=== PATIENT | male | born 1985 | race Two or more races ===

== ENCOUNTER 2024-09-06 09:15 | Emergency (ER) | payer MEDICAID, SELFPAY ==
[2024-09-06 09:17] VITALS: BMI 37.1
[2024-09-06 09:35] VITALS: BP 138/89; PULSE 105; RESP 18; TEMP 37.9; O2SAT 98
--- NOTE | 2024-09-06 09:50 | XR_ITS ---
Examination: CT abdomen and pelvis without contrast. Coronal 3-D reconstructions. Sagittal 2-D reconstructions. Date and time of exam:September 06, 2024, 1012 hrs. Comparison August 31, 2020 Indications: Onset left lower abdominal pain beginning yesterday CTDI: vol (mGy): 17.1 DLP: (mGycm): 1030 Technique: Axial images of the abdomen have been obtained, 3 mm slice thickness Intravenous contrast material has not been administered. Low dose protocols were performed. One or more of the following dose reduction techniques were used; automated exposure control, adjustment of the mA and/or KV according to patient size, use of iterative reconstruction technique. Findings: Diffuse fatty infiltration throughout the liver, no liver or splenic lesions Absent gallbladder No pancreatic mass or peripancreatic edema. Normal adrenal glands. No renal or ureteral calculi. No hydronephrosis Aorta normal size Normal appendix. No bowel obstruction. Colonic wall appears diffusely mildly thickened No diverticulitis. Urinary bladder intact. No significant prostatomegaly Grade 1 spondylolisthesis L4 on L5 Impression: Mild diffuse nonspecific colitis pattern
[2024-09-06 10:14] LABS: Collection Type, Urine Clean Catch
[2024-09-06 10:28] LABS: Bacteria,Urine Rare; Bilirubin,Urine Negative (Negative); Blood,Urine Negative (Negative); Clarity,Urine Turbid (Clear/Hazy); Color,Urine Yellow (Lt Yel-Yel); Glucose, Urine Negative (Negative); Ketones,Urine Negative (Negative); Leukocyte Esterase,Urine Positive (Negative); Nitrite,Urine Negative (Negative); PH,Urine 6.5 (5.0-7.0); Protein,Urine 1+ (Neg - Trace); RBC,Urine 3 /hpf (0-3); Specific Gravity,Urine 1.031 (1.001-1.035); Squamous Epithelial Cell,Urine 3 /hpf (0-5); WBC,Urine 27 /hpf (0-5)
--- NOTE | 2024-09-06 10:30 | EDNOTE_ITS ---
ED Abdominal Pain RME/HPI General Chief Complaint: Abdominal Pain Stated complaint: LLQ PAIN X1D Time seen by provider: 09/06/24 09:29 Arrival date/time: 09/06/24 09:15 This is a case of 39-year-old male history of status postcholecystectomy came in in the emergency room due to left-sided abdominal pain associated with nausea vomiting and diarrhea denies any constipation for 1 day due to worsening of the symptoms this patient decided to start consult here in the emergency room Limitations: no limitations Related Data Previous Rx's ?Medication ?Instructions ?Recorded cyclobenzaprine 7.5 mg tablet 7.5 mg PO TID PRN muscle spasm #20 03/09/20 tabs methylprednisolone 4 mg tablets in 4 mg PO .as directe d #21 tabs 03/09/20 a dose pack (Medrol (Efren)) naproxen 500 mg tablet 500 mg PO BID PRN pain #30 t abs 03/09/20 naproxen 500 mg tablet (Naprosyn) 500 mg PO BID #30 ta bs 04/20/20 ondansetron HCl 4 mg tablet 4 mg PO Q6H PRN nausea and 04/20/20 (Zofran) vomiting #30 tabs etodolac 400 mg tablet 400 mg PO BID PRN pain #30 t abs 08/08/20 methocarbamol 750 mg tablet 750 mg PO TID PRN pain #30 tabs 08/08/20 acetaminophen 500 mg tablet 1,000 mg (2 x 500 mg) PO Q ID PRN 01/15/21 fever or pain #30 tabs albuterol sulfate 90 mcg/actuation 2 puff inhalation Q ID #8.5 grams 01/15/21 aerosol inhaler azithromycin 250 mg tablet See Rx Instructions PO .COM PLEX #6 01/15/21 tabs acetaminophen 500 mg capsule 1,000 mg (2 x 500 mg) PO Q8HR PRN 04/16/21 pain #60 caps ibuprofen 800 mg tablet 800 mg PO TID PRN pain #30 t abs 04/16/21 promethazine-DM 6.25 mg-15 mg/5 mL 5 ml PO Q6H PRN cou gh #473 mL 04/16/21 oral syrup ciprofloxacin HCl 500 mg tablet 500 mg PO BID 10 days #20 tabs 09/06/24 dicyclomine 20 mg tablet 20 mg PO TID PRN abdominal p ain 09/06/24 #20 tabs metronidazole 500 mg tablet 500 mg PO Q8H 10 days #30 tabs 09/06/24 ondansetron 4 mg disintegrating 4 mg PO Q8H PRN nausea and 09/06/24 tablet vomiting #20 tabs Allergies Allergy/AdvReac Type Severity Reaction Status Date / Time No Known Allergies Allergy Verified 09/06/24 09:19 Review of Systems Review of Systems Systems Reviewed: All systems reviewed, normal except as documented Constitutional Constitutional: Reports system reviewed and no additional complaints, except as documented ENT Ears, Nose, Mouth, and Throat: Denies dysphagia and Denies odynophagia Cardiovascular Cardiovascular: Reports system reviewed and no additional complaints, except as documented and Reports as per HPI Respiratory Respiratory: Reports system reviewed and no additional complaints, except as documented and Reports as per HPI Gastrointestinal Gastrointestinal: Reports system reviewed and no additional complaints, except as documented, Reports as per HPI, Reports abdominal pain, Denies belching, Denies bloating, Denies change in bowel habits, Denies change in stool character, Denies coffee ground emesis, Denies constipation, Denies cramping, Reports diarrhea, Denies dyspepsia, Denies dysphagia, Denies early satiety, Denies excessive flatus, Denies fecal incontinence, Denies heartburn, Denies hematemesis, Denies hematochezia, Denies loose stools, Denies melena, Reports nausea, Denies odynophagia, Denies tenesmus and Reports vomiting Musculoskeletal Musculoskeletal: Reports system reviewed and no additional complaints, except as documented Neurologic Neurologic: Reports system reviewed and no additional complaints, except as documented and Reports as per HPI Past Medical History Past Medical History NEUROLOGIC: Positive Neurological Disorders (states cyst to L side of head) and Migraine CARDIAC: Negative Cardiac Disorders or Congestive Heart Failure RESPIRATORY: Negative Chronic Obstructive Pulmonary Disease (COPD) or Asthma GASTROINTESTINAL: Positive Gastrointestinal Disorders and Gall Bladder Disease GENITOURINARY: Negative Genitourinary Disorders or Renal Disease MUSCULOSKELETAL: Negative Musculoskeletal Disorders ENDOCRINE: Negative Endocrine Disorders, Diabetes Mellitus Type 1 or Diabetes Mellitus Type 2 HEMATOLOGIC: Negative Blood Disorders or Sickle Cell Disease Social History SMOKING STATUS: Never smoker ED Exam General Limitations: Present no limitations General appearance: Present alert and in no apparent distress Head Head exam: Present atraumatic Eye Eye exam: Present normal appearance, PERRL and EOMI ENT ENT exam: Present normal exam, normal oropharynx and mucous membranes moist Neck Neck exam: Present normal inspection, full ROM and trachea midline Chest Chest inspection: Present normal inspection and symmetric chest wall rise Respiratory Respiratory exam: Present normal lung sounds bilaterally; Absent respiratory distress, wheezes, stridor, accessory muscle use or prolonged expiratory phase Cardiovascular Cardiovascular exam: Present regular rate, normal rhythm and normal heart sounds; Absent systolic murmur or diastolic murmur Abdominal Exam Abdominal exam: Present soft, tenderness (Mild tenderness on the left lower quadrant) and normal bowel sounds; Absent distention, guarding, rebound, rigidity, diminished bowel sounds, hyperactive bowel sounds, hypoactive bowel sounds, organomegaly, trauma, incision, psoas sign, obturator sign, Diaz's sign, Rovsing's sign, tenderness at McBurney's Point, ascites or hernia Abdominal tenderness: Present LLQ Extremities Exam Extremities exam: Present normal inspection and full ROM Back Exam Back exam: Present normal inspection and full ROM Neurological Exam Neurological exam: Present alert, oriented X3, CN II-XII intact, normal gait and reflexes normal; Absent motor sensory deficit Psychiatric Psychiatric exam: Present normal affect and normal mood Skin Skin exam: Present warm, dry, intact and normal color Course Quality Measures none Orders Category Date Time Status CT abdomen pelvis wo con Stat Exams 09/06/24 09:50 Completed CBC Stat Lab 09/06/24 10:21 Completed Comprehensive Metabolic Panel Stat Lab 09/06/24 10:21 Completed Lactate (Lactic Acid) Stat Lab 09/06/24 12:46 Completed Lipase Stat Lab 09/06/24 10:21 Completed Urinalysis Stat Lab 09/06/24 09:52 Completed Acetaminophen Tab [Tylenol Tab] Med 09/06/24 13:23 Once 650 mg PO X1 ONE Ciprofloxacin HCl [Ciprofloxacin] Med 09/06/24 13:11 Discontinued 500 mg PO X1 ONE Dicyclomine [Bentyl] Med 09/06/24 13:11 Discontinued 20 mg PO X1 ONE Ondansetron Inj [Zofran Inj] Med 09/06/24 12:48 Discontinued 4 mg IVP X1 ONE Sodium Chloride 0.9% 1000 ml [Ns] 1,000 ml Med 09/06/24 12:48 Active IV 999 mls/hr metroNIDAZOLE [Flagyl] Med 09/06/24 13:11 Discontinued 500 mg PO X1 ONE Vital Signs Vital signs: Vital Signs Temperature 100.3 F 09/06/24 09:35 Pulse Rate 105 H 09/06/24 09:35 Respiratory Rate 18 09/06/24 09:35 Blood Pressure 138/89 H 09/06/24 09:35 Pulse Oximetry (%) 98 09/06/24 09:35 Oxygen Delivery Method Room Air 09/06/24 09:35 Patient is febrile at 100.3 after hydration patient temperature noted to be 99 not tachycardic not tachypneic BP normal oxygen saturation is 98% on room Abdominal Pain MDM MDM Narrative MDM Narrative:: This is a case of 39-year-old male history of status postcholecystectomy came in in the emergency room due to left-sided abdominal pain associated with nausea vomiting and diarrhea denies any constipation for 1 day due to worsening of the symptoms this patient decided to start consult here in the emergency room physical examination patient is awake alert oriented not in distress nontoxic looking patient is slightly febrile but after giving hydration patient temperature noted to be 99 not tachycardic not tachypneic not hypoxic abdominal exam is benign nonsurgical no guarding no rebound no rigidity patient have mild tenderness on the left lower quadrant negative psoas negative obturator negative Rovsing's negative McBurney's negative Diza sign negative CVA tenderness patient blood test showed leukocytosis at 17.7 I ordered lactic acid and it was normal no anemia kidney and liver function is normal no electrolyte imbalance urinalysis showed positive WBC suggestive of urinary tract infection CT scan showed colitis patient was given a bolus of normal saline Zofran for vomiting Bentyl for pain and started on metronidazole and ciprofloxacin for colitis at this point patient will be discharged home with stable condition I do not think patient have signs and symptoms of sepsis dehydration patient will follow-up with PCP in 2 days for reevaluation and to be referred to academic program specialist for colitis and fatty liver at this point patient will be discharged home and understand very well the discharge instruction Patient was discharged with comfortable condition walking with stable gait. Patient verbalized no further complains explained diagnosis and answered patient question. Patient is comfortable with the proposed management plan including the need to follow up with his/her primary care physician and any specialist if applicable Discussed patient for any urgent condition or worsening sx, He/She needed to go to emergency room immediately or call 911. Patient acknowledge the responsibility to follow up as instructed and to monitor her/his symptoms. For any persistence of the symptoms for more than 3-5 days return precaution advised. Discussed the result of the test and was given printed discharge instruction Patient data External records reviewed:: [facility] previous records Clinical information provided by:: none Social determinants that could affect healthcare access:: none Patient has the following chronic illnesses:: none How is presenting disease/condition affected by chronic disease/condition?: no chronic disease Evaluation data The following diagnostics were reviewed and interpreted by me:: lab results, radiology exam(s) and other (specify) Lab and/or radiology exams considered but not ordered:: Reviewed Interpretation Summary: Reviewed Medications / Prescriptions Medications or Prescriptions considered but not ordered:: Given Medication administrations:: Medication Administration History Sodium Chloride (Ns) 1,000 mls @ 999 mls/hr IV .Q1H1M ONE Stop: 09/06/24 13:48 Last Admin: 09/06/24 13:08 Dose: 999 mls/hr Documented By: MF Discontinued Medications Ciprofloxacin (Ciprofloxacin Hcl 250 Mg Tablet) 500 mg PO X1 ONE Stop: 09/06/24 13:12 Dicyclomine HCl (Dicyclomine 10 Mg Capsule) 20 mg PO X1 ONE Stop: 09/06/24 13:12 Metronidazole (Metronidazole 250 Mg Tablet) 500 mg PO X1 ONE Stop: 09/06/24 13:12 Ondansetron HCl (Ondansetron Inj 2 Mg/Ml Inj 2 Ml) 4 mg IVP X1 ONE; Protocol Stop: 09/06/24 12:49 Given Consultations Consultation(s) initiated? (list below): No Diagnosis Differential diagnosis abdominal pain: abdominal pain, acute appendicitis, calculus of kidney, diverticulitis and gastroenteritis Most likely diagnosis given after review of the tests above:: Colitis Admission Indicated Admission indicated?: not indicated Explain why admission is indicated or not indicated:: Not indicate Admission Request Was there a request for admission?: No Disposition Plan Disposition Plan: Discharge Discharge Attestation Discharge Attestation: The patient and all family members were given an opportunity to ask questions and understood the discharge instructions. Discharge instructions specifically effects, indications for sooner follow up or return to the emergency department, and the expected course of current diagnosis. Patient condition: Stable Discharge Plan Plan Patient Disposition: HOME (Self Care) Patient condition on transfer: Stable Prescriptions/Referrals Prescriptions/Med Rec: New metronidazole 500 mg tablet 500 mg PO Q8H 10 Days Qty: 30 0RF ciprofloxacin HCl 500 mg tablet 500 mg PO BID 10 Days Qty: 20 0RF ondansetron 4 mg tablet,disintegrating 4 mg PO Q8H PRN (Reason: nausea and vomiting) Qty: 20 0RF dicyclomine 20 mg tablet 20 mg PO TID PRN (Reason: abdominal pain) Qty: 20 0RF No Action cyclobenzaprine 7.5 mg tablet 7.5 mg PO TID PRN (Reason: muscle spasm) Qty: 20 0RF naproxen 500 mg tablet 500 mg PO BID PRN (Reason: pain) Qty: 30 0RF methylprednisolone [Medrol (Efren)] 4 mg tablets,dose pack 4 mg PO .as directed Qty: 21 0RF naproxen [Naprosyn] 500 mg tablet 500 mg PO BID Qty: 30 0RF ondansetron HCl [Zofran] 4 mg tablet 4 mg PO Q6H PRN (Reason: nausea and vomiting) Qty: 30 0RF methocarbamol 750 mg tablet 750 mg PO TID PRN (Reason: pain) Qty: 30 0RF etodolac 400 mg tablet 400 mg PO BID PRN (Reason: pain) Qty: 30 0RF promethazine-DM 6.25-15 mg/5 mL syrup 5 ml PO Q6H PRN (Reason: cough) Qty: 473 0RF ibuprofen 800 mg tablet 800 mg PO TID PRN (Reason: pain) Qty: 30 0RF acetaminophen 500 mg capsule 1,000 mg PO Q8HR PRN (Reason: pain) Qty: 60 0RF azithromycin 250 mg tablet See Rx Instructions .ROUTE .COMPLEX Qty: 6 0RF Rx Instructions: take 500 mg today (day 1), then 250 mg for 4 days (days 2-5) acetaminophen 500 mg tablet 1,000 mg PO QID PRN (Reason: fever or pain) Qty: 30 0RF albuterol sulfate 90 mcg/actuation HFA aerosol inhaler 2 puff inhalation QID Qty: 8.5 0RF Referrals: Tom Willson MD [Primary Care Provider] - In 1 week Problem List Clinical Impression: Abdominal pain, Vomiting, Diarrhea, Colitis, Fatty liver, Leukocytosis, Urinary tract infection Patient/Caregiver Discharge Instructions Education Materials: Abdominal Pain, Nonalcoholic Fatty Liver ..., Understanding Urinary Tract ..., Understanding Colitis, ED Vomiting and Diarrhea ... Additional Instructions: Follow-up with your primary care physician in 2 days for reevaluation and to be referred to academic program specialist for further evaluation and treatment of colitis and fatty liver increase water intake keep hydrated Pedialyte Gatorade for every bouts of vomiting and or diarrhea return to the emergency room tomorrow for reevaluation of your leukocytosis and to repeat the blood test tomorrow worsening symptoms or any emergent concern return to the emergency room immediately or call 911 take your medication and finish the course of antibiotic Print Language: Polish Stand Alone Forms: [employer] Award Info., Patient Portal Info Letter PA/SOFTWARE INTEGRATION DEVELOPER Supervising Physician PA/JINA Supervising Physician: dr [email or web address]
[2024-09-06 11:05] LABS: Basophils # (Auto) 0.1 Thou/mm3 (0.0-0.2); Basophils % (Auto) 0 % (0-2.5); Eosinophils % (Auto) 0 % (0-10); Hematocrit 45.3 % (41.0-53.0); Hemoglobin 15.5 g/dL (13.5-16.0); Immature Granulocytes % (Auto) 1 % (0-0); Immature Granulocytes Auto 0.09 Thou/mm3 (0.00-0.00); Lymphocytes # (Auto) 1.5 Thou/mm3 (1.0-4.8); Lymphocytes % (Auto) 9 % (10-50); Mean Corpuscular HGB Conc 34.2 g/dl (31.0-37.0); Mean Corpuscular Hemoglobin 29.9 pg (25.0-35.0); Mean Corpuscular Volume 88 fL (80-100); Monocytes # (Auto) 0.9 Thou/mm3 (0.0-0.8); Monocytes % (Auto) 5 % (0-12); Neutrophils # (Auto) 15.1 Thou/mm3 (1.8-7.7); Neutrophils % (Auto) 85 % (37-80); Nucleated Red Blood Cell % 0 /100 WBC (0); Platelet Count 234 Thou/mm3 (140-440); RDW Standard Deviation 39.5 fL (35.1-43.9); Red Blood Count 5.18 Miln/mm3 (4.50-5.90); White Blood Count 17.7 Thou/mm3 (3.8-10.6)
[2024-09-06 11:16] LABS: Alanine Aminotransferase 36 U/L (10-49); Albumin, Serum 4.5 gm/dL (3.5-5.0); Albumin/Globulin Ratio 1.6 (1.2-2.2); Alkaline Phosphatase 63 U/L (46-116); Anion Gap 11 (7-16); BUN/Creatinine Ratio 10 Ratio (12-20); Bilirubin,Total 1.2 mg/dL (0.3-1.2); Blood Urea Nitrogen 8 mg/dL (9-23); Calcium 9.1 mg/dL (8.3-10.6); Calcium (Corrected) 9.1 mg/dL (8.5-10.1); Carbon Dioxide 26.2 mMol/L (20.0-31.0); Chloride 103 mMol/L (98-107); Creatinine (Component) 0.8 mg/dL (0.6-1.3); Estimated Creatinine Clearance 141.7 mL/min (>60); Globulin 2.8 gm/dL (2.3-3.5); Glucose 121 mg/dL (74-106); Lipase 40 U/L (12-53); Osmolality,Calculated 278 (275-295); Potassium 3.8 mMol/L (3.4-5.1); Sodium 140 mMol/L (136-145); Total Protein 7.3 gm/dL (5.7-8.2); eGFR > 60 See Note
[2024-09-06 12:57] LABS: Lactate (Lactic Acid) 1.5 mMol/L (0.4-2.0)
[2024-09-06] MEDS: SODIUM CHLORIDE 0.9% 1000 ML 1,000 ML 999 ML IV (13:08)
[2024-09-06 13:30] VITALS: BP 128/79; PULSE 77; RESP 18; TEMP 36.8; O2SAT 98
[2024-09-06] MEDS: CIPROFLOXACIN HCL 250 MG TABLET 500 MG PO (13:58)
[2024-09-06] MEDS: ACETAMINOPHEN 325 MG TABLET 650 MG PO (13:59)
[2024-09-06] MEDS: metroNIDAZOLE 250 MG TABLET 500 MG PO (14:00)
[2024-09-06] MEDS: DICYCLOMINE 10 MG CAPSULE 20 MG PO (14:00)
== END 2024-09-06 13:30 | disposition home or self-care (01) ==
PROVIDERS: Nurse Practitioner Family; Emergency Provider Family Medicine; PCP Family Medicine
DX: K52.9 Noninfective gastroenteritis and colitis, unspecified (principal); K76.0 Fatty (change of) liver, not elsewhere classified; N39.0 Urinary tract infection, site not specified; D72.829 Elevated white blood cell count, unspecified
CPT/HCPCS: 36415; 74176; 80053; 81001; 83605; 83690; 85025; 96360; 99284; J7030; A9270

== ENCOUNTER 2024-10-16 18:26 | Emergency (ER) | payer MEDICAID, SELFPAY ==
[2024-10-16 18:28] VITALS: PULSE 82; RESP 24; O2SAT 98; BMI 36.5
--- NOTE | 2024-10-16 18:35 | EDNOTE_ITS ---
ED Allergic Reaction RME/HPI General Chief complaint: Allergic Reaction Stated complaint: STAT Time Seen by Provider: 10/16/24 18:34 Arrival date/time: 10/16/24 18:26 RME / HPI RME / HPI narrative: This section includes all my notes and documentations, including HPI, PE, and ED course. Nguyễn Ashford MD HPI: 39 y/ male with Hx of Asthma BIBA from a bus stop with throat tightness. EMS gave Albuterol treatment and epinephrine injection in case of allergic reaction en route with equivocal improvement. Denies itching and rash. Denies daily prescriptions. Has been ill with coughing and shortness of breath for few days. No other complaints. ROS: All negative except as documented in HPI. Physical Exam: General: Alert and oriented. Appears anxious. Eyes: Conjunctivae and lids clear. ENT: No nasal congestion. Pharynx normal. Patent airway. TM normal bilaterally. Neck: Supple. Heart: RRR. Lungs: No respiratory distress. Mildly decreased air movement with no significant rhonchi or wheezing or rales. Abdomen: Soft and nontender. Normal bowel sounds. No distension. No rebound or guarding. Back: No CVA tenderness. Skin: Warm and dry. Neuro: Alert and oriented X 3. Cranial nerves II to XII grossly normal. No peripheral motor deficits. I reviewed EMS notes. I reviewed all diagnostic test results: My interpretation of the EKG is: Sinus tachycardia (109 bpm) with nonspecific ST-T changes. My interpretation of the chest x-ray is no acute findings. My review of the Soft Tissue Neck CT report is NAD. My review of the Chest CTA report is bibasilar pneumonia. Blood tests remarkable for WBC 18.8 and K2.7. Covid/Influenza/RSV/Guadalupe/Strep negative. At this point, diagnoses include: Pneumonia and mild asthma exacerbation. Treatment here included: IV fluid, Solu-Medrol and neb treatment, Ativan, Rocephin and Zithromax, and oral/IV KCl. With decreased mental status, with difficulty waking him up, flumazenil 0.2 mg given with significant improvement. Significant improvement noted. Recommended outpatient management. Based on my best medical judgment, made decision no further evaluation or treatment indicated at this time. Patient understands and agrees to the discharge instructions customized and printed, see below. Discharge instructions from Dr. Ashford: --After evaluation, you have pneumonia. --No physical exertion for 3 days to help rest the lungs. ?No smoking or exposure to smoking or pets or dust or cold or humidity. --Zithromax and cefdinir to kill the germs causing the pneumonia. --Prednisone to help decrease the swelling in the airways. --Albuterol 2 puffs every 4-6 hours for 3 days to help keep the airways open. Then as needed for cough or shortness of breath. --For good hydration, increase oral fluid and maintain clear urine. If dark or yellow, increase oral fluid. When you are sick, you need extra fluid. --Eat a banana daily because your potassium level was low. --See a private doctor on 10/19/2024 for recheck. Ask to review all test results and official radiology reports, to make sure you receive all necessary follow-ups and monitoring, including repeat potassium level. Ask for help until you are completely better. --Seek immediate medical care with worsening or with any concerns. Nguyễn Ashford MD Related Data Previous Rx's ?Medication ?Instructions ?Recorded cyclobenzaprine 7.5 mg tablet 7.5 mg PO TID PRN muscle spasm #20 03/09/20 tabs methylprednisolone 4 mg tablets in 4 mg PO .as directe d #21 tabs 03/09/20 a dose pack (Medrol (Efren)) naproxen 500 mg tablet 500 mg PO BID PRN pain #30 t abs 03/09/20 naproxen 500 mg tablet (Naprosyn) 500 mg PO BID #30 ta bs 04/20/20 ondansetron HCl 4 mg tablet 4 mg PO Q6H PRN nausea and 04/20/20 (Zofran) vomiting #30 tabs etodolac 400 mg tablet 400 mg PO BID PRN pain #30 t abs 08/08/20 methocarbamol 750 mg tablet 750 mg PO TID PRN pain #30 tabs 08/08/20 acetaminophen 500 mg tablet 1,000 mg (2 x 500 mg) PO Q ID PRN 01/15/21 fever or pain #30 tabs albuterol sulfate 90 mcg/actuation 2 puff inhalation Q ID #8.5 grams 01/15/21 aerosol inhaler azithromycin 250 mg tablet See Rx Instructions PO .COM PLEX #6 01/15/21 tabs acetaminophen 500 mg capsule 1,000 mg (2 x 500 mg) PO Q8HR PRN 04/16/21 pain #60 caps ibuprofen 800 mg tablet 800 mg PO TID PRN pain #30 t abs 04/16/21 promethazine-DM 6.25 mg-15 mg/5 mL 5 ml PO Q6H PRN cou gh #473 mL 04/16/21 oral syrup dicyclomine 20 mg tablet 20 mg PO TID PRN abdominal p ain 09/06/24 #20 tabs ondansetron 4 mg disintegrating 4 mg PO Q8H PRN nausea and 09/06/24 tablet vomiting #20 tabs albuterol sulfate 90 mcg/actuation 2 puff inhalation Q 6H PRN 10/17/24 aerosol inhaler shortness of breath or wheez ing #8.5 grams azithromycin 500 mg tablet 500 mg PO QDAY 3 days #3 ta bs 10/17/24 (Zithromax TRI-EFREN) cefdinir 300 mg capsule 300 mg PO BID #14 caps 10/17 prednisone 50 mg tablet 50 mg PO QDAY #3 tabs Allergies Allergy/AdvReac Type Severity Reaction Status Date / Time No Known Allergies Allergy Verified 09/06/24 09:19 Review of Systems Review of Systems Systems Reviewed: All systems reviewed, normal except as documented Past Medical History Past Medical History NEUROLOGIC: Positive Neurological Disorders (states cyst to L side of head) and Migraine RESPIRATORY: Positive Asthma GASTROINTESTINAL: Positive Gastrointestinal Disorders and Gall Bladder Disease ED Exam Narrative Physical exam: Refer to [facility] Course Quality Measures none Orders Category Date Time Status Bedside COVID-19 Antigen Test NOW Care 10/16/24 18:35 Completed Bedside Influenza A&B Antigen Test NOW Care 10/16/24 18:[address] Screening NOW Care 10/16/24 18:37 Completed EKG (ED ONLY) *Do not use* NOW Care 10/16/24 18:36 Completed Saline [Insert IV] NOW Care 10/16/24 18:[address] angio chest Stat Exams 10/16/24 18:[address] soft tissue neck w con Stat Exams 10/16/24 18:37 Completed EKG (ED Only) Stat Exams 10/16/24 18:36 Ordered XR chest 1V portable Stat Exams 10/16/24 18:37 Completed ABG [Arterial Blood Gas] Stat Lab 10/16/24 18:51 Completed Alcohol, Blood Medical Stat Lab 10/16/24 18:30 Completed BNP [B-Type Natriuretic Peptide] Stat Lab 10/16/24 18:30 Completed Bilirubin,Direct Stat Lab 10/16/24 18:30 Completed CBC Stat Lab 10/16/24 18:30 Completed CMP [Comprehensive Metabolic Panel] Stat Lab 10/16/24 18:30 Completed D-Dimer Stat Lab 10/16/24 18:30 Completed Magnesium Stat Lab 10/16/24 18:30 Completed Guadalupe Screen Stat Lab 10/16/24 18:30 Completed Path Review Blood Smear Stat Lab 10/16/24 18:30 Completed Potassium Stat Lab 10/17/24 00:31 Completed RSV [Respiratory Syncytial Virus Ag] Stat Lab 10/16/24 20:15 Completed Strep A Rapid Stat Lab 10/16/24 20:15 Completed Troponin I Stat Lab 10/16/24 18:30 Completed Azithromycin Po [Zithromax PO] Med 10/16/24 21:00 Discontinued 500 mg PO X1 ONE Famotidine Inj [Pepcid Inj] Med 10/16/24 18:36 Discontinued 20 mg IVP X1 ONE KCL 10% Liq UDC 15 ML Med 10/16/24 19:27 Discontinued 40 meq PO X1 ONE LORazepam [Ativan Inj] Med 10/16/24 18:36 Discontinued 0.75 mg IVP X1 ONE Levalbuterol Rt [Xopenex Rt Rosio] Med 10/16/24 18:35 Discontinued 2.5 mg INH X1 ONE MethylPREDNISolone.* [SoluMEDROL Inj] Med 10/16/24 18:36 Discontinued 125 mg IVP X1 ONE Metoprolol Tartrate [Lopressor] Med 10/16/24 19:22 Discontinued 75 mg PO X1 ONE POTASSIUM CHL 10 mEq IVPB [Kcl Ivpb] Med 10/16/24 22:16 Discontinued 10 meq in 100 ml IV X1 Potassium Chloride [K-Dur] Med 10/16/24 19:28 Discontinued 40 meq PO X1 ONE Sodium Chloride 0.9% 1000 ml [Ns] 1,000 ml Med 10/16/24 18:36 Discontinued IV 999 mls/hr Sodium Chloride Rt Rosio 0.9% [NS Rt Rosio 0.9%] Med 10/16/24 18:35 Discontinued 6 ml INH PRN PRN cefTRIAXone/D5w 1gm IV premix [Rocephin/D5w 1gm IV Med 10/16/24 21:00 Discontinued premix] 1 g in 50 ml IV X1 flumazeniL [Romazicon Inj] Med 10/16/24 21:25 Discontinued 0.2 mg IVP X1 ONE Vital Signs Vital signs: Vital Signs Temperature 99.1 F 10/16/24 18:37 Pulse Rate 106 H 10/16/24 18:37 Respiratory Rate 24 H 10/16/24 18:37 Blood Pressure 177/97 H 10/16/24 18:37 Pulse Oximetry (%) 96 10/16/24 18:37 Oxygen Delivery Method Aerosol Mask 10/16/24 18:37 Allergic Reaction MDM Narrative MDM Narrative:: Scribe Attestation: IRosa, am scribing for and in the presence of Dr. Ashford. Provider Notation: Although this document has been carefully reviewed, there may still be some phonetic and other typographical errors.? These errors are purely grammatical due to imperfections in the software program and should not be construed in any way to? compromise the substance of the patient's medical care during this visit. 39 y/ male with Hx of Asthma [place]IB[place] from [place] bus stop with throat tightness. EMS gave Albuterol treatment and epinephrine injection in case of allergic reaction en route with equivocal improvement. Denies itching and rash. Denies daily prescriptions. Has been ill with coughing and shortness of breath for few days. No other complaints. Patient data External records reviewed:: [facility] previous records (Reviewed prior ED records from 09/06/24. Patient was seen for Abdominal pain.) and EMS form Clinical information provided by:: EMS Social determinants that could affect healthcare access:: none Patient has the following chronic illnesses:: Asthma, Gall Bladder Disease How is presenting disease/condition affected by chronic disease/condition?: exacerbated by Evaluation data The following diagnostics were reviewed and interpreted by me:: EKG tracing(s) (My interpretation of the EKG is: Sinus tachycardia (109 bpm) with nonspecific ST-T changes. Nguyễn Ashford MD) Lab and/or radiology exams considered but not ordered:: None Interpretation Summary: I reviewed all diagnostic test results: My interpretation of the EKG is: Sinus tachycardia (109 bpm) with nonspecific ST-T changes. My interpretation of the chest x-ray is no acute findings. My review of the Soft Tissue Neck CT report is NAD. My review of the Chest CTA report is bibasilar pneumonia. Blood tests remarkable for WBC 18.8 and K2.7. Covid/Influenza/RSV/Guadalupe/Strep negative. Medications / Prescriptions Medications or Prescriptions considered but not ordered:: None Medication administrations:: Medication Administration History Discontinued Medications Azithromycin (Azithromycin 250 Mg Tablet) 500 mg PO X1 ONE Stop: 10/16/24 21:01 Last Admin: 10/16/24 22:56 Dose: 500 mg Documented By: BD Famotidine (Famotidine Inj 10 Mg/Ml Vial 2 Ml) 20 mg IVP X1 ONE Stop: 10/16/24 18:37 Last Admin: 10/16/24 19:21 Dose: 20 mg Documented By: BD Flumazenil (Flumazenil Inj 0.1 Mg/Ml Vial 10 Ml) 0.2 mg IVP X1 ONE Stop: 10/16/24 21:26 Last Admin: 10/16/24 21:38 Dose: 0.2 mg Documented By: BD Sodium Chloride (Ns) 1,000 mls @ 999 mls/hr IV .Q1H1M ONE Stop: 10/16/24 19:36 Last Infusion: 10/16/24 22:43 Dose: Infused Documented By: Admin: 10/16/24 19:22 Dose: 999 mls/hr Documented By: BD Ceftriaxone Sodium/Dextrose (Rocephin/D5w 1gm Iv Premix) 1 g in 50 mls @ 100 mls/hr IV X1 ONE Stop: 10/16/24 21:29 Last Infusion: 10/16/24 22:43 Dose: Infused Documented By: Admin: 10/16/24 21:30 Dose: 100 mls/hr Documented By: BD Potassium Chloride (Kcl Ivpb) 10 meq in 100 mls @ 100 mls/hr IV X1 ONE Stop: 10/16/24 23:15 Last Infusion: 10/17/24 00:13 Dose: Infused Documented By: Infusion: 10/16/24 22:56 Dose: 75 mls/hr Documented By: Admin: 10/16/24 22:49 Dose: 100 mls/hr Documented By: BD Levalbuterol HCl (Levalbuterol Rt 1.25 Mg/0.5 Ml Nebu) 2.5 mg INH X1 ONE Stop: 10/16/24 18:36 Last Admin: 10/16/24 18:52 Dose: 1.25 mg Documented By: DM Lorazepam (Lorazepam 2 Mg/Ml Vial) 0.75 mg IVP X1 ONE Stop: 10/16/24 18:37 Last Admin: 10/16/24 19:21 Dose: 0.75 mg Documented By: BD Methylprednisolone Sodium Succinate (Methylprednisolone Sod Succ 62.5 Mg/Ml 2ml Vial) 125 mg IVP X1 ONE Stop: 10/16/24 18:37 Last Admin: 10/16/24 19:21 Dose: 125 mg Documented By: BD Metoprolol Tartrate (Metoprolol Tartrate 25 Mg Tablet) 75 mg PO X1 ONE Stop: 10/16/24 19:23 Last Admin: 10/16/24 22:14 Dose: Not Given Documented By: BD Non-Admin Reason: Cancelled by Provider Potassium Chloride (Potassium Chloride 10% 20 Meq/15 Ml Udc) 40 meq PO X1 ONE Stop: 10/16/24 19:28 Last Admin: 10/16/24 22:57 Dose: 40 meq Documented By: BD Potassium Chloride (Potassium Chloride 20 Meq Tabcr) 40 meq PO X1 ONE Stop: 10/16/24 19:29 Last Admin: 10/16/24 22:55 Dose: Not Given Documented By: BD Non-Admin Reason: Cancelled by Provider Sodium Chloride (Sodium Chloride Rt Rosio 0.9% 3 Ml Nebu) 6 ml INH PRN PRN PRN Reason: SOLN Stop: 11/15/24 18:34 Treatment here included: IV fluid, Solu-Medrol and neb treatment, Ativan, Rocephin and Zithromax, and oral/IV KCl. With decreased mental status, with difficulty waking him up, flumazenil 0.2 mg given with significant improvement. Consultations Consultation(s) initiated? (list below): No Diagnosis Differential Diagnosis allergic reaction: anaphylaxis, allergic reaction, angioedema and adverse reaction to drug Most likely diagnosis given after review of the tests above:: Pneumonia Admission Indicated Admission indicated?: not indicated Explain why admission is indicated or not indicated:: With significant improvement and no condition needing emergent intervention, there was no indication for admission. Admission Request Was there a request for admission?: No Disposition Plan Disposition Plan: Discharge Discharge Attestation Discharge Attestation: The patient and all family members were given an opportunity to ask questions and understood the discharge instructions. Discharge instructions specifically effects, indications for sooner follow up or return to the emergency department, and the expected course of current diagnosis. Patient condition: Stable Discharge Plan Plan Patient Disposition: HOME (Self Care) Prescriptions/Referrals Prescriptions/Med Rec: New prednisone 50 mg tablet 50 mg PO QDAY Qty: 3 0RF albuterol sulfate 90 mcg/actuation HFA aerosol inhaler 2 puff inhalation Q6H PRN (Reason: shortness of breath or wheezing) Qty: 8.5 0RF cefdinir 300 mg capsule 300 mg PO BID Qty: 14 0RF azithromycin [Zithromax TRI-EFREN] 500 mg tablet 500 mg PO QDAY 3 Days Qty: 3 0RF No Action cyclobenzaprine 7.5 mg tablet 7.5 mg PO TID PRN (Reason: muscle spasm) Qty: 20 0RF naproxen 500 mg tablet 500 mg PO BID PRN (Reason: pain) Qty: 30 0RF methylprednisolone [Medrol (Efren)] 4 mg tablets,dose pack 4 mg PO .as directed Qty: 21 0RF naproxen [Naprosyn] 500 mg tablet 500 mg PO BID Qty: 30 0RF ondansetron HCl [Zofran] 4 mg tablet 4 mg PO Q6H PRN (Reason: nausea and vomiting) Qty: 30 0RF methocarbamol 750 mg tablet 750 mg PO TID PRN (Reason: pain) Qty: 30 0RF etodolac 400 mg tablet 400 mg PO BID PRN (Reason: pain) Qty: 30 0RF promethazine-DM 6.25-15 mg/5 mL syrup 5 ml PO Q6H PRN (Reason: cough) Qty: 473 0RF ibuprofen 800 mg tablet 800 mg PO TID PRN (Reason: pain) Qty: 30 0RF acetaminophen 500 mg capsule 1,000 mg PO Q8HR PRN (Reason: pain) Qty: 60 0RF azithromycin 250 mg tablet See Rx Instructions .ROUTE .COMPLEX Qty: 6 0RF Rx Instructions: take 500 mg today (day 1), then 250 mg for 4 days (days 2-5) acetaminophen 500 mg tablet 1,000 mg PO QID PRN (Reason: fever or pain) Qty: 30 0RF albuterol sulfate 90 mcg/actuation HFA aerosol inhaler 2 puff inhalation QID Qty: 8.5 0RF ondansetron 4 mg tablet,disintegrating 4 mg PO Q8H PRN (Reason: nausea and vomiting) Qty: 20 0RF dicyclomine 20 mg tablet 20 mg PO TID PRN (Reason: abdominal pain) Qty: 20 0RF Referrals: No Primary/Family,Physician [Primary Care Provider] - In 1 week Problem List Clinical Impression: Pneumonia Patient/Caregiver Discharge Instructions Discharge Activity: activity as tolerated Education Materials: ED Pneumonia (Adult) Additional Instructions: Discharge instructions from Dr. Ashford: --After evaluation, you have pneumonia. --No physical exertion for 3 days to help rest the lungs. ?No smoking or exposure to smoking or pets or dust or cold or humidity. --Zithromax and cefdinir to kill the germs causing the pneumonia. --Prednisone to help decrease the swelling in the airways. --Albuterol 2 puffs every 4-6 hours for 3 days to help keep the airways open. Then as needed for cough or shortness of breath. --For good hydration, increase oral fluid and maintain clear urine. If dark or yellow, increase oral fluid. When you are sick, you need extra fluid. --Eat a banana daily because your potassium level was low. --See a private doctor on 10/19/2024 for recheck. Ask to review all test results and official radiology reports, to make sure you receive all necessary follow-ups and monitoring, including repeat potassium level. Ask for help until you are completely better. --Seek immediate medical care with worsening or with any concerns. Print Language: [place] Stand Alone Forms: [employer] Award Info., Patient Portal Info Letter
[2024-10-16 18:37] VITALS: BP 177/97; PULSE 106; RESP 24; TEMP 37.3; O2SAT 96
--- NOTE | 2024-10-16 18:37 | XR_ITS ---
Examination: CT soft tissue neck, with intravenous contrast. 2-D coronal reconstructions. 2-D sagittal reconstructions. Date and time of exam :October 16, 2024 1955 hours INDICATIONS: Throat tightness and swelling today. CTDI: vol (mGy):16.2 DLP: (mGycm):432 Technique: 1.25 mm axial sections of the neck of the obtained. Coronal and sagittal reconstructions have been obtained. Intravenous contrast administered 50 cc Isovue 370. Low dose protocols were performed. One or more of the following dose reduction techniques were used; automated exposure control, adjustment of the mA and/or KV according to patient size, use of iterative reconstruction technique. Findings: Left cerebellar atrophy noted on brain scan September 26, 2020 Symmetrical oropharynx Soft tissue tonsillar hypertrophy no tonsillar abscesses Carotid triangle lymph nodes, the largest 12 mm There is considerable patient motion which degrades scan image quality No laryngeal mass Thyroid lobes are not enlarged Epiglottis is not thickened Satisfactory alignment cervical vertebral bodies IMPRESSION: This study is severely limited by continuous patient motion No gross oropharyngeal or laryngeal mass Epiglottis does not appear thickened. No prevertebral soft tissue prominence Satisfactory alignment cervical vertebral bodies
--- NOTE | 2024-10-16 18:37 | XR_ITS ---
Examination: AP chest single view. TECHNIQUE: AP portable upright chest single view. Date and time: October 16, 2024, 1856 hours, comparison January 26, 2023. INDICATIONS: Shortness of breath today. FINDINGS: Normal heart size. Lungs are clear. The osseous structures are intact. IMPRESSION: No active disease.
--- NOTE | 2024-10-16 18:37 | XR_ITS ---
Examination: CTA chest with intravenous contrast 2-D reconstructions 3-D reconstructions, vascular Date and time of exam: October 16, 2024 1951 hours INDICATION: Shortness of breath onset chest pain today CTDI: vol (mGy) 103.2 DLP: (mGycm) 741 Technique: Multiple axial sections of the thorax have been obtained. 3 mm slice thickness, from below the hemidiaphragms to above the apices of the lungs. Mediastinal and lung density settings have been obtained. 2-D sagittal and coronal reconstructions. 3-D angiographic renderings, 3-D volume renderings, 3D post processing, vascular maximum intensity projections obtained. Contrast administered is 100 cc Isovue 370 intravenous.. Low dose protocols were performed. One or more of the following dose reduction techniques were used; automated exposure control, adjustment of the mA and/or KV according to patient size, use of iterative reconstruction technique. Findings: No thoracic aortic aneurysmal dilatation or dissection Pulmonary artery opacification is reduced, no pulmonary artery filling defects noted No paratracheal tracheobronchial or bronchopulmonary adenopathy 2 mm pulmonary nodule right upper lobe Mild bibasilar pneumonia No visualized liver splenic lesion Minor atelectasis in lower lung zones Absent gallbladder No pancreatic mass IMPRESSION: Negative for pulmonary artery emboli 2 mm pulmonary nodule right upper lobe, recommend follow-up Mild bibasilar pneumonia
[2024-10-16 18:50] LABS: Basophils # (Auto) 0.1 Thou/mm3 (0.0-0.2); Basophils % (Auto) 0 % (0-2.5); Eosinophils # (Auto) 0.5 Thou/mm3 (0.0-0.5); Eosinophils % (Auto) 3 % (0-10); Hematocrit 44.7 % (41.0-53.0); Hemoglobin 15.6 g/dL (13.5-16.0); Immature Granulocytes Auto 0.10 Thou/mm3 (0.00-0.00); Lymphocytes # (Auto) 6.6 Thou/mm3 (1.0-4.8); Lymphocytes % (Auto) 35 % (10-50); Mean Corpuscular HGB Conc 34.9 g/dl (31.0-37.0); Mean Corpuscular Hemoglobin 29.5 pg (25.0-35.0); Mean Corpuscular Volume 85 fL (80-100); Monocytes # (Auto) 1.0 Thou/mm3 (0.0-0.8); Monocytes % (Auto) 6 % (0-12); Neutrophils # (Auto) 10.6 Thou/mm3 (1.8-7.7); Neutrophils % (Auto) 56 % (37-80); Nucleated Red Blood Cell # 0.00 Thou/mm3 (0.00-0.00); Nucleated Red Blood Cell % 0 /100 WBC (0); Platelet Count 338 Thou/mm3 (140-440); RDW Standard Deviation 38.2 fL (35.1-43.9); Red Blood Count 5.29 Miln/mm3 (4.50-5.90); White Blood Count 18.8 Thou/mm3 (3.8-10.6)
[2024-10-16] MEDS: LEVALBUTEROL RT 1.25 MG/0.5 ML NEBU 2.5 MG INH (18:52)
[2024-10-16 18:53] VITALS: PULSE 109; RESP 27; O2SAT 97
[2024-10-16 19:04] LABS: Allen Test Performed/OK; Base Excess 0 (-3-3); HCO3 24 mEq/L (20-26); Inspired O2, VO2 Liters 5 L/min; O2 Saturation 97 % (91-98); PCO2 37 mmHg (32.0-48.0); PO2 86 mmHg (83-108); Puncture Site Left Radial; pH, Arterial 7.42 (7.35-7.45)
[2024-10-16] MEDS: FAMOTIDINE INJ 10 MG/ML VIAL 2 ML 20 MG IVP (19:21)
[2024-10-16] MEDS: LORazepam 2 MG/ML VIAL 0.75 MG IVP (19:21)
[2024-10-16] MEDS: MethylPREDNISolone SOD SUCC 62.5 MG/ML 2ML VIAL 125 MG IVP (19:21)
[2024-10-16] MEDS: SODIUM CHLORIDE 0.9% 1000 ML 1,000 ML 999 ML IV (19:22)
[2024-10-16 19:23] LABS: Alanine Aminotransferase 38 U/L (10-49); Albumin, Serum 5.0 gm/dL (3.5-5.0); Albumin/Globulin Ratio 1.8 (1.2-2.2); Alcohol, Blood Medical < 3.0 mg/dL (0-10.0); Alkaline Phosphatase 89 U/L (46-116); Anion Gap 14 (7-16); Aspartate Amino Transferase 32 U/L (0-34); BUN/Creatinine Ratio 11 Ratio (12-20); Bilirubin,Direct 0.2 mg/dL (0.0-0.3); Bilirubin,Total 0.8 mg/dL (0.3-1.2); Blood Urea Nitrogen 10 mg/dL (9-23); Calcium 10.4 mg/dL (8.3-10.6); Calcium (Corrected) 10.4 mg/dL (8.5-10.1); Carbon Dioxide 25.3 mMol/L (20.0-31.0); Chloride 105 mMol/L (98-107); Creatinine (Component) 0.9 mg/dL (0.6-1.3); Estimated Creatinine Clearance 133.1 mL/min (>60); Globulin 2.8 gm/dL (2.3-3.5); Glucose 138 mg/dL (74-106); Magnesium 2.3 mg/dL (1.6-2.6); Osmolality,Calculated 287 (275-295); Sodium 144 mMol/L (136-145); Total Protein 7.8 gm/dL (5.7-8.2); Troponin I < 0.020 ng/mL (0.0-0.045); eGFR > 60 See Note
[2024-10-16 19:25] LABS: D-Dimer 404 ng/mL (<600)
[2024-10-16 19:26] LABS: B-Type Natriuretic Peptide < 20 pg/mL (0-100); Potassium 2.7 mMol/L (3.4-5.1)
--- NOTE | 2024-10-16 19:26 | PC.NURSE ---
pt refused in and out cath
[2024-10-16 21:16] LABS: Strep A Rapid Negative (Negative)
[2024-10-16 21:21] LABS: Respiratory Syncytial Virus Ag Negative (Negative)
--- NOTE | 2024-10-16 21:26 | PC.LAC ---
HOLDING PO MEDS PT IS NOT ALERT ENOUGH KEEPS DRIFTING BACK TO SLEEP
[2024-10-16] MEDS: cefTRIAXone/D5w 1gm IV premix 1 G/50 ML BAG IV (21:30)
[2024-10-16 21:31] VITALS: BP 159/97; PULSE 94; RESP 25; TEMP 36.9; O2SAT 94
[2024-10-16] MEDS: FLUMAZENIL INJ 0.1 MG/ML VIAL 10 ML 0.2 MG IVP (21:38)
[2024-10-16] MEDS: POTASSIUM CHL 10 mEq IVPB 10 MEQ/100 ML BAG 100 MEQ IV (22:49)
[2024-10-16] MEDS: AZITHROMYCIN 250 MG TABLET 500 MG PO (22:56)
[2024-10-16] MEDS: POTASSIUM CHLORIDE 10% 20 MEQ/15 ML UDC 40 MEQ PO (22:57)
[2024-10-16 23:57] LABS: Mono Screen Negative (Negative)
[2024-10-17] VITALS: BP 104/67; PULSE 93; RESP 18; TEMP 36.9; O2SAT 96
[2024-10-17 00:54] LABS: Potassium 4.5 mMol/L (3.4-5.1)
[2024-10-17 01:19] VITALS: BP 118/70; PULSE 89; RESP 16; TEMP 37; O2SAT 95
[2024-10-17 05:19] LABS: Path Review Blood Smear Sent to Pathologist
== END 2024-10-17 01:20 | disposition home or self-care (01) ==
PROVIDERS: Emergency Provider Emergency Medicine
DX: J18.9 Pneumonia, unspecified organism (principal); R91.1 Solitary pulmonary nodule
CPT/HCPCS: 36415; 36600; 70491; 71045; 71275; 80053; 80307; 80320; 81001; 82248; 82803; 83605; 83735; 83880; 84132; 84145; 84484; 85025; 85379; 85652; 86140; 86308; 87040; 87400; 87634; 87651; 87811; 93005; 94640; 96361; 96365; 96366; 96375; 99283; A4649; J0696; J2060; J2919; J3480; J3490; J7030; Q9967; A9270; G0480